=== PATIENT | male | born 1995 | race Caucasian/White ===

== ENCOUNTER 2024-04-15 19:21 | Emergency (ER) | payer MEDICAID, OTHER ==
[~2024-04-15] VITALS: Ht 167.6 cm; Wt 72.6 kg
[2024-04-15 19:47] VITALS: BP 147/90; TEMP 98.5
[2024-04-15] MEDS ORDERED: IPRATROPIUM NEB FS 0.5 MG/2.5 ML AMPUL.NEB ONE (20:16)
[2024-04-15] MEDS ORDERED: ALBUTEROL FS 2.5 MG/3 ML VIAL.NEB ONE (20:16)
[2024-04-15 20:20] VITALS: O2SAT 96
[2024-04-15] MEDS: ALBUTEROL FS 2.5 MG/3 ML VIAL.NEB NEB ONE (20:21)
[2024-04-15] MEDS: IPRATROPIUM NEB FS 0.5 MG/2.5 ML AMPUL.NEB NEB ONE (20:21)
[2024-04-15 20:22] LABS: BASOPHILS # (AUTO) 0.1 K/uL (0.0-0.2); BASOPHILS % (AUTO) 0.7 % (0.0-2.0); EOSINOPHILS # (AUTO) 1.3 K/uL (0.0-0.7); HEMATOCRIT 45 % (39-51); HEMOGLOBIN 14.8 g/dL (13.5-17.5); LYMPHOCYTES # (AUTO) 2.3 K/uL (0.8-4.8); LYMPHOCYTES % (AUTO) 25.2 % (20.0-44.0); MEAN CORPUSCULAR HEMOGLOBIN 28 PG (26.0-33.0); MEAN CORPUSCULAR HGB CONC 33 g/dl (31.0-36.0); MEAN CORPUSCULAR VOLUME 84 fL (80-96); MONOCYTES # (AUTO) 0.6 K/uL (0.1-1.30); MONOCYTES % (AUTO) 6.1 % (2.0-12.0); NEUTROPHILS # (AUTO) 4.9 K/uL (1.8-8.9); PLATELET COUNT (AUTO) 257 K/uL (150-450); RED BLOOD CELL COUNT(AUTO) 5.38 MIL/uL (4.5-6.0); RED CELL DISTRIBUTION WIDTH 13.7 % (11.5-15.0)
[2024-04-15 20:33] LABS: CREATININE 0.8 mg/dL (0.6-1.3); POTASSIUM 4.7 mmol/L (3.5-5.1)
[2024-04-15] MEDS ORDERED: methylPREDNISolone SOD SUCC 125 MG/2ML VIAL ONE (20:34)
[2024-04-15] MEDS: methylPREDNISolone SOD SUCC 125 MG/2ML VIAL IV ONE (20:38)
[2024-04-15] MEDS ORDERED: BENZ-13 PO (21:09)
[2024-04-15] MEDS ORDERED: PRED20TA PO (21:09)
[2024-04-15] MEDS ORDERED: ALBU90AE INH (21:09)
[2024-04-15 21:13] VITALS: O2SAT 95
== END 2024-04-15 21:32 | disposition home or self-care (01) ==
LOC: ER 19:23
DX: J45.909 Unspecified asthma, uncomplicated (principal); R05.9 Cough, unspecified
CPT/HCPCS: 99284; 96374; 71045; 85025; 80048; 85378; 36415; 94640; J2919

== ENCOUNTER 2024-05-03 00:37 | Emergency (ER) | payer MEDICAID ==
[~2024-05-03 00:37] MED LIST: ALBU90AE INH; BENZ-13 PO; PRED20TA PO
== END 2024-05-03 03:32 | disposition left against medical advice (07) ==
LOC: ER 00:40
DX: R07.9 Chest pain, unspecified (principal); Z53.21 Procedure and treatment not carried out due to patient leaving prior to being seen by health care provider